=== PATIENT | male | born 1950 | race Caucasian/White ===

== ENCOUNTER 2016-06-11 20:23 | Emergency (ER) | payer OTHER ==
[~2016-06-11] VITALS: Ht 170.2 cm; Wt 100.0 kg
[~2016-06-11 20:23] MED LIST: ACIPHEX20 MG PO; ACTOPLUS MET PO; ACTOPLUS MET1 TABLE1 PO; ADVAIR 500-501 EACH IH; ALPRAZOLAM0.25 MG PO; ASPIR-LOW81 MG PO; AUGMENTIN875 MG PO; COGENTIN0.5 MG PO; DIVALPROEX SOD500 MG PO; Depakote PO; GABAPENTIN300 MG PO; LEVOTHROID,SYN0.1 MG PO; LIPITOR40 MG PO; LOPRESSOR25 MG PO; Levothroid,Synthroid PO; NITROSTAT0.4 MG SL; Neurontin PO; OxyCODONE PO; PROTONIX40 MG PO; RAMIPRIL2.5 MG PO; RISPERDAL2 MG PO; SINGULAIR10 MG PO; SPIRIVA1 INHALATI IH; Tylenol Regular Stre PO; ZAFIRLUKAST20 M1 PO; Zocor PO; risperDAL PO
[2016-06-11 21:16] LABS: ADD MIUA? NO; BILIRUBIN NEGATIVE; BLOOD NEGATIVE; COLOR COLORLESS ((YELLOW)); GLUCOSE (STRIP) NEGATIVE; KETONES NEGATIVE; LEUKOCYTES NEGATIVE; NITRITE NEGATIVE; PROTEIN (STRIP) NEGATIVE; SPECIFIC GRAVITY 1.004 (1.000-1.030); UCUL ADDED? NO; UROBILINOGEN 0.2 MG/DL (0.2-1.0)
[2016-06-11 21:39] LABS: AMPHETAMINE NEGATIVE (500 ng/mL); BARBITURATES NEGATIVE (200 ng/mL); BENZODIAZEPINES NEGATIVE (150 ng/mL); COCAINE NEGATIVE (150 ng/mL); INTERNAL CONTROLS VALID? YES; METHADONE NEGATIVE (200 ng/mL); METHAMPHETAMINE NEGATIVE (500 ng/mL); OPIATES (MORPHINE) NEGATIVE (100 ng/mL); OXYCODONE NEGATIVE (100 ng/mL); PHENCYCLIDINE NEGATIVE (25 ng/mL); PROPOXYPHENE NEGATIVE (300 ng/mL); THC CANNABINOIDS NEGATIVE (50 ng/mL); TRICYCLIC ANTIDEPRESSANTS NEGATIVE (300 ng/mL)
[2016-06-11] MEDS ORDERED: ATIVAN1 MG PO (22:15)
[2016-06-11 22:30] VITALS: BP 160/96
== END 2016-06-11 22:33 | disposition home or self-care (01) ==
LOC: EME 20:23
PROVIDERS: Emergency Medicine
DX: F31.11 Bipolar disorder, current episode manic without psychotic features, mild (principal); F41.9 Anxiety disorder, unspecified; G47.00 Insomnia, unspecified; E11.9 Type 2 diabetes mellitus without complications; J44.9 Chronic obstructive pulmonary disease, unspecified; E78.5 Hyperlipidemia, unspecified; I10 Essential (primary) hypertension; K21.9 Gastro-esophageal reflux disease without esophagitis; Z95.1 Presence of aortocoronary bypass graft; Z88.5 Allergy status to narcotic agent; F17.200 Nicotine dependence, unspecified, uncomplicated
CPT/HCPCS: 81003; 90839; 99281; 99284

== ENCOUNTER 2016-06-24 15:40 | Emergency (ER) | payer OTHER ==
[~2016-06-24] VITALS: Ht 170.2 cm; Wt 97.0 kg
[~2016-06-24 15:40] MED LIST changes: +ATIVAN1 MG PO
[2016-06-24 16:18] LABS: HEMATOCRIT 39.6 % (38.0-50.0); MCH 29.8 PG (29.0-34.0); MCHC 34.6 G/DL (30.0-36.0); MEAN PLAT.VOLUME 9.1 uM^3 (9.0-12.4); PLATELET COUNT 218 K/uL (156-360); RBC DIS.WIDTH-CV 13.3 % (11.8-14.6); RBC DIS.WIDTH-SD 42.1 % (39-53); RED BLOOD COUNT 4.59 M/uL (4.00-5.50); WHITE BLOOD COUNT 8.6 K/uL (4.1-10.2)
[2016-06-24 16:29] LABS: MCV 86.3 FL (86-99)
[2016-06-24 16:30] LABS: CHLORIDE 94 mEq/L (99-109); POTASSIUM 4.3 mEq/L (3.7-5.4); SODIUM 125 mEq/L (136-147)
[2016-06-24 16:32] LABS: GLUCOSE 181 mg/dL (70-99)
[2016-06-24 16:33] LABS: ANION GAP 16 MEQ/L (2-14)
[2016-06-24 16:35] LABS: SERUM ETHYL ALCOHOL < 10 mg/dL
[2016-06-24 16:36] LABS: GFR ESTIMATE (CALCULATED) > 59 mL/min/
[2016-06-24 16:37] LABS: UREA NITROGEN (BUN) 18 mg/dL (9-23)
[2016-06-24 16:41] LABS: TROP-I INTERPRETATION NEGATIVE; TROPONIN-I < 0.01 ng/mL (0.0-0.30)
[2016-06-24 17:07] LABS: SAMPLE HEMOLYSIS CHECK 0; SAMPLE ICTERIC CHECK 0; SAMPLE LIPEMIA CHECK 0
[2016-06-24 17:09] LABS: ADD MIUA? NO; BILIRUBIN NEGATIVE; BLOOD NEGATIVE; COLOR YELLOW ((YELLOW)); GLUCOSE (STRIP) NEGATIVE; KETONES 5; LEUKOCYTES NEGATIVE; NITRITE NEGATIVE; PROTEIN (STRIP) 30; SPECIFIC GRAVITY 1.013 (1.000-1.030); UCUL ADDED? NO; UROBILINOGEN 0.2 MG/DL (0.2-1.0)
[2016-06-24 17:23] LABS: AMPHETAMINE NEGATIVE (500 ng/mL); BENZODIAZEPINES NEGATIVE (150 ng/mL); COCAINE NEGATIVE (150 ng/mL); METHAMPHETAMINE NEGATIVE (500 ng/mL); OPIATES (MORPHINE) NEGATIVE (100 ng/mL); PHENCYCLIDINE NEGATIVE (25 ng/mL); THC CANNABINOIDS NEGATIVE (50 ng/mL)
[2016-06-24 17:24] LABS: BARBITURATES NEGATIVE (200 ng/mL); INTERNAL CONTROLS VALID? YES; METHADONE NEGATIVE (200 ng/mL); OXYCODONE NEGATIVE (100 ng/mL); PROPOXYPHENE NEGATIVE (300 ng/mL); TRICYCLIC ANTIDEPRESSANTS NEGATIVE (300 ng/mL)
[2016-06-24 18:13] VITALS: BP 138/70
== END 2016-06-24 18:14 | disposition left against medical advice (07) ==
LOC: EME → EDSEX 15:40 → EDBD 15:40 → EME 15:40
PROVIDERS: Emergency Medicine
DX: R56.9 Unspecified convulsions (principal); E87.1 Hypo-osmolality and hyponatremia; E11.65 Type 2 diabetes mellitus with hyperglycemia; E78.5 Hyperlipidemia, unspecified; I10 Essential (primary) hypertension; M54.9 Dorsalgia, unspecified; G89.29 Other chronic pain; Z95.1 Presence of aortocoronary bypass graft; F17.200 Nicotine dependence, unspecified, uncomplicated
CPT/HCPCS: 70450; 80048; 80164; 81003; 82140; 84484; 85027; 93005; 99281; 99285; G0480

== ENCOUNTER 2017-10-11 20:55 | Emergency (ER) | payer OTHER ==
[~2017-10-11] VITALS: Ht 172.7 cm; Wt 89.2 kg
[2017-10-11 22:14] LABS: HEMATOCRIT 37.5 % (38.0-50.0); HEMOGLOBIN 13.4 G/DL (12.5-16.6); MCH 31.4 PG (29.0-34.0); MCHC 35.7 G/DL (30.0-36.0); MCV 87.8 FL (86-99); PLATELET COUNT 151 K/uL (156-360); RBC DIS.WIDTH-CV 14.3 % (11.8-14.6); RBC DIS.WIDTH-SD 46.4 % (39-53); RED BLOOD COUNT 4.27 M/uL (4.00-5.50); WHITE BLOOD COUNT 7.4 K/uL (4.1-10.2)
[2017-10-11 22:27] LABS: ALBUMIN 4.2 g/dL (3.2-4.8)
[2017-10-11 22:28] LABS: CHLORIDE 96 mEq/L (99-109); POTASSIUM 4.3 mEq/L (3.7-5.4); SODIUM 127 mEq/L (136-147)
[2017-10-11 22:30] LABS: GLUCOSE 106 mg/dL (70-99); TOTAL PROTEIN 6.5 g/dL (6.4-8.3)
[2017-10-11 22:32] LABS: TOTAL BILIRUBIN 0.4 mg/dL (0.0-1.0)
[2017-10-11 22:33] LABS: ALKALINE PHOSPHATASE 98 IU/L (3-129)
[2017-10-11 22:34] LABS: CREATININE 0.9 mg/dL (0.6-1.3); GFR ESTIMATE (CALCULATED) > 59 mL/min/ (58.99-99999)
[2017-10-11 22:35] LABS: AST (GOT) 17 IU/L (2-34); UREA NITROGEN (BUN) 13 mg/dL (9-23)
[2017-10-11 22:37] LABS: ALT (GPT) 15 IU/L (3-49)
[2017-10-11 23:02] LABS: TROP-I INTERPRETATION NEGATIVE; TROPONIN-I < 0.01 ng/mL (0.0-0.30)
[2017-10-12 00:01] VITALS: BP 147/102
== END 2017-10-12 00:01 | disposition home or self-care (01) ==
LOC: EME 20:55
DX: E87.1 Hypo-osmolality and hyponatremia (principal); R55 Syncope and collapse; D64.9 Anemia, unspecified; I10 Essential (primary) hypertension; E78.5 Hyperlipidemia, unspecified; K21.9 Gastro-esophageal reflux disease without esophagitis; E11.9 Type 2 diabetes mellitus without complications; J44.9 Chronic obstructive pulmonary disease, unspecified; I25.10 Atherosclerotic heart disease of native coronary artery without angina pectoris; F32.9 Major depressive disorder, single episode, unspecified; F31.9 Bipolar disorder, unspecified; F41.9 Anxiety disorder, unspecified; F17.200 Nicotine dependence, unspecified, uncomplicated; Z95.1 Presence of aortocoronary bypass graft; Z88.5 Allergy status to narcotic agent
CPT/HCPCS: 71046; 80053; 84484; 85027; 93005; 99281; 99285; J7030